=== PATIENT | male | born 2000 | race Caucasian/White ===

== ENCOUNTER 2022-08-29 17:50 | Emergency (ER) | payer OTHER ==
[~2022-08-29] VITALS: Ht 182.9 cm; Wt 134.1 kg
[2022-08-29] MEDS ORDERED: IBUPROFEN 800 MG TAB PO ONE (21:55)
[2022-08-29] MEDS ORDERED: CYCLOBENZAPRINE 10MG TABLET PO ONE (21:55)
[2022-08-29] MEDS ORDERED: IBUP-1022 PO (21:57)
[2022-08-29] MEDS ORDERED: CYCL-707 PO (21:57)
[2022-08-29 22:05] VITALS: BP 141/94
== END 2022-08-29 22:07 | disposition home or self-care (01) ==
LOC: M ED 17:50 → EDBD 17:50 → M ED 22:07
DX: S13.4XXA Sprain of ligaments of cervical spine, initial encounter (principal); S16.1XXA Strain of muscle, fascia and tendon at neck level, initial encounter; V43.52XA Car driver injured in collision with other type car in traffic accident, initial encounter; Z88.0 Allergy status to penicillin

== ENCOUNTER → 2022-10-30 | Outpatient (REF) | payer OTHER ==
[~2022-10-30] MED LIST: CYCL-707 PO; IBUP-1022 PO
== END ==
LOC: M LAB REF 21:55
PROVIDERS: ATTEND Physician Assistant
DX: J02.9 Acute pharyngitis, unspecified (principal)